=== PATIENT | female | born 1935 | race Caucasian/White ===

== ENCOUNTER 2019-08-09 07:48 | Day surgery (SDC) | payer OTHER ==
[2019-08-09 08:42] VITALS: BMI 22.6
[2019-08-09 10:22] VITALS: BP 132/52; PULSE 62; TEMP 98.1
--- NOTE | 2019-08-12 10:35 | PATH ---
Surgical Pathology Report Patient Name: DERRICK [facility]EAGA [facility]. Rec. #: [id number] /Age/Gender: 1935 (Age: 84) / F Account: [id number] Location: [facility]-ENDOSCOPY Taken: 08/09/2019 Received: 08/09/2019 Reported: 08/12/2019 Physicians: CHANEL TRUONG Specimen(s) Received A: ASCENDING COLON POLYP B: TRANSVERSE COLON POLYP Clinical History Change in bowel habits, constipation Postoperative diagnosis: Diverticulosis, polyps x2, hemorrhoids Final Diagnosis A. ASCENDING COLON, POLYP, POLYPECTOMY: TUBULAR ADENOMA. B. TRANSVERSE COLON, POLYP, POLYPECTOMY: COLONIC MUCOSA SHOWING MILD SURFACE HYPERPLASTIC CHANGE. Electronically Signed Radha Dotson M.D. Gross Description A. Received in formalin, labeled "ascending colon polyp" is a castro, irregular portion of soft tissue measuring 0.2 cm. in greatest dimension. The specimen is submitted in toto in one cassette. B. Received in formalin, labeled "transverse colon polyp" is a castro, irregular portion of soft tissue measuring 0.2 cm. in greatest dimension. The specimen is submitted in toto in one cassette. /08/09/2019 saudi08/09/2019
== END 2019-08-09 10:30 | disposition home or self-care (01) ==
LOC: JASU-ENDO 07:48
PROVIDERS: ATTEND Internal Medicine Gastroenterology
PROC: 0DBN8ZX Excision of Sigmoid Colon, Via Natural or Artificial Opening Endoscopic, Diagnostic (ICD-10-PCS; 2019-08-09)
PROC: 0DBK8ZX Excision of Ascending Colon, Via Natural or Artificial Opening Endoscopic, Diagnostic (ICD-10-PCS; principal; 2019-08-09 09:30)
DX: D12.2 Benign neoplasm of ascending colon (principal); D12.3 Benign neoplasm of transverse colon; K59.00 Constipation, unspecified; K57.30 Diverticulosis of large intestine without perforation or abscess without bleeding; K64.8 Other hemorrhoids; I10 Essential (primary) hypertension; E78.5 Hyperlipidemia, unspecified; I25.2 Old myocardial infarction
CPT/HCPCS: 88305-TC